=== PATIENT | male | born 1940 | race African-American/Black ===

== ENCOUNTER 2019-11-06 13:25 | Emergency (ER) | payer MEDICARE, OTHER ==
[~2019-11-06] VITALS: Ht 172.7 cm; Wt 76.7 kg
[2019-11-06 13:27] VITALS: BP 143/90
[2019-11-06] MEDS ORDERED: HYDROCHLOROTHIA25 MG ORAL (13:35)
[2019-11-06] MEDS ORDERED: METFORMIN HCL500 M4 ORAL (13:35)
[2019-11-06] MEDS ORDERED: NS 250 ML IVPB ONE (13:45)
--- NOTE | 2019-11-06 13:50 | NUR ---
d ndED Nurse Note: pt brought in my ambulance from home due to ground level fall. pt aaox4, calm and cooperative. pt unable to ambulate due to pain from the fall. pt denied head injury. pt denied n/v. no signs and symptoms of respiratory or cardiac distress. left ankle is edematous from fall but no other wounds or bruises noted. pt in gown. ERMD by bedside.
--- NOTE | 2019-11-06 14:01 | NUR ---
ED Nurse Note: pt taken to CT in stable condition
--- NOTE | 2019-11-06 14:04 | Emergency Room Report ---
History of Present Illness General Chief Complaint: Multiple Trauma/Fall Source: EMS Present Illness HPI 79-year-old male history of diabetes, controlled hypertension presented for a fall. He states his left leg, gave out on him. He is complaining of left ankle pain in addition to minor headache. During the fall patient struck his head on the TV stand. No neck or back pain. Denies any chest or abdominal pain. EMS called to the house and transported patient to the ER. Patient does not take any blood thinners. Pain is currently 8 out of 10 in the ankle and head nonradiating. Allergies: Coded Allergies: No Known Allergies (Unverified , 11/06/19) Patient History Past Medical History: see triage record Reviewed Nursing Documentation: PMH: Agreed; PSxH: Agreed Nursing Documentation-PMH Hx Hypertension: Yes Hx Diabetes: Yes Review of Systems All Other Systems: negative except mentioned in HPI Physical Exam Vital Signs Date Time Temp Pulse Resp B/P (MAP) Pulse Ox O2 Delivery O2 Flow Rate FiO2 11/06/19 13:21 98.6 90 18 143/90 (107) 98 11/06/19 13:27 Room Air Sp02 EP Interpretation: reviewed, normal General Appearance: well appearing, no apparent distress Head: normocephalic, other - Small hematoma to left parietal area noted Eyes: bilateral eye PERRL, bilateral eye EOMI ENT: hearing grossly normal, moist mucus membranes Neck: full range of motion, supple, other - No midline tenderness Respiratory: lungs clear, normal breath sounds, no rhonchi, no respiratory distress, no retraction, no wheezing Cardiovascular #1: normal peripheral pulses, regular rate, rhythm, no murmur Gastrointestinal: non tender, soft, non-distended, no guarding Musculoskeletal: other - Left ankle swollen decreased range of motion secondary to pain Neurologic: alert, oriented x3, no focal defects Skin: normal color, warm/dry Medical Decision Making ER Course Differential diagnosis included but not limited to closed head injury, left ankle sprain, ankle fracture, I believe less likely intracranial hemorrhage or skull fracture. Due to patient's age and history of head trauma I did order a CT scan of the brain in addition to a left ankle x-ray Other X-Ray Diagnostic Results Other X-Ray Diagnostic Results : X-Ray ordered: Ankle # of Views/Limited Vs Complete: 3 View Indication: Pain Interpretation: no dislocation, no fractures Last Vital Signs Date Time Temp Pulse Resp B/P (MAP) Pulse Ox O2 Delivery O2 Flow Rate FiO2 11/06/19 13:27 98.6 18 143/90 98 11/06/19 13:27 75 Room Air Status: improved Signed Out To: Deacon Rachel M.D. Nov 06, 2019 14:04
[2019-11-06 14:08] VITALS: BP 135/79
--- NOTE | 2019-11-06 14:18 | NUR ---
ED Nurse Note: pt back from CT in stable condition.
[2019-11-06 14:32] LABS: BASOPHILS % (AUTO) 1.4 % (0.0-2.0); EOSINOPHILS % (AUTO) 0.2 % (0.0-3.0); HEMATOCRIT 35.2 % (42.0-52.0); LYMPHOCYTES % (AUTO) 9.5 % (20.0-45.0); MEAN CORPUSCULAR VOLUME 94 FL (80-99); MONOCYTES % (AUTO) 10.7 % (1.0-10.0); NEUTROPHILS % (AUTO) 78.2 % (45.0-75.0); PLATELET COUNT 241 K/UL (150-450); RED BLOOD COUNT 3.73 M/UL (4.70-6.10); RED CELL DISTRIBUTION WIDTH 10.6 % (11.6-14.8); WHITE BLOOD COUNT 11.1 K/UL (4.8-10.8)
--- NOTE | 2019-11-06 14:33 | Diagnostic Imaging Report ---
Indication: left ankle pain Comparison: None Findings: 3 views of the left ankle obtained. There is generalized soft tissue swelling about the ankle and hindfoot. No fracture seen. No definite malalignment identified. There is suggestion of a periarticular osteophytes at the ankle consistent with osteoarthritis. There is a prominent plantar calcaneal spur. IMPRESSION: No evidence of acute bony injury. Generalized soft tissue swelling Osteoarthritis
[2019-11-06 14:59] LABS: ANION GAP 11 mmol/L (5-15); BLOOD UREA NITROGEN 17 mg/dL (7-18); CALCIUM 9.2 MG/DL (8.5-10.1); CARBON DIOXIDE 27 MMOL/L (21-32); CHLORIDE 100 MMOL/L (98-107); CREATININE 1.6 MG/DL (0.55-1.30); POTASSIUM 4.4 MMOL/L (3.5-5.1); SODIUM 138 MMOL/L (136-145)
--- NOTE | 2019-11-06 15:00 | Diagnostic Imaging Report ---
Indication: Headache Technique: Contiguous 5 mm thick transaxial imaging of the head obtained in a Siemens Sensation [address] scanner. Soft tissue and bone windows generated. Automatic Exposure Control was utilized. Total Dose length Product (DLP): 965.4mGycm CT Dose Index Volume (CTDIvol): 53.4 mGy Comparison: none Findings: There is mild prominence of the ventricles, basal cisterns, and cerebral sulci consistent with atrophy. Mild, nonspecific, white matter hypoattenuation is noted throughout the brain consistent with chronic small vessel disease. There is no midline shift, edema, acute hemorrhage, mass effect, or abnormal extra-axial fluid collections. Bones are unremarkable. Impression: No acute intracranial bleed, mass effect or edema. Mild atrophy of the brain. Nonspecific white matter hypoattenuation probably due to chronic small vessel disease. The CT scanner at [facility] is accredited by the [employer] and the scans are performed using dose optimization techniques as appropriate to a performed exam including Automatic Exposure control.
[2019-11-06 15:07] LABS: ALANINE AMINOTRANSFERASE 20 U/L (12-78); ALBUMIN 3.6 G/DL (3.4-5.0); ALBUMIN/GLOBULIN RATIO 0.9 (1.0-2.7); ALKALINE PHOSPHATASE 83 U/L (46-116); ASPARTATE AMINO TRANSFERASE 15 U/L (15-37); BILIRUBIN,TOTAL 1.3 MG/DL (0.2-1.0)
[2019-11-06 15:10] LABS: BILIRUBIN,DIRECT 0.3 MG/DL (0.0-0.3)
--- NOTE | 2019-11-06 16:32 | NUR ---
ED Nurse Note: SPOKE WITH JOSEP GUY-
[2019-11-06 17:57] VITALS: BP 119/69
--- NOTE | 2019-11-06 18:36 | NUR ---
ED Nurse Note: report given to CAL Celestin
[2019-11-06 18:59] VITALS: BP 128/75
--- NOTE | 2019-11-06 19:04 | NUR ---
ED Nurse Note: Pt was advised to be admitted by ERMD but pt refused x3. Patient stated "I don't want to stay in hospital. I just want to go home." Pt provided the risk of leaving AMA. pt verbalized understanding and agreed with it. DC instructions given which that pt should come back for worsening condition and pt verbalized understanding of teachings. All medical deviecs such as ID band removed. Pt is AAO x4, a friend picked pt up left with all personal belongings.
== END 2019-11-06 19:00 | disposition left against medical advice (07) ==
LOC: EDBD 13:25 → EMR 14:33 → CANBEDREQ 18:55 → EMR 19:00
DX: M25.572 Pain in left ankle and joints of left foot (principal); R51 Headache; E11.9 Type 2 diabetes mellitus without complications; I10 Essential (primary) hypertension; W19.XXXA Unspecified fall, initial encounter; Y92.9 Unspecified place or not applicable
CPT/HCPCS: 36415; 70450; 73610; 80053; 82248; 85025; 85610; 85730; 99284; J7050